=== PATIENT | female | born 1960 ===

== ENCOUNTER 2022-12-22 11:42 | Day surgery (SDC) | payer OTHER, SELFPAY ==
--- NOTE | 2022-12-22 | PATH_ITS ---
[facility] Accession Number: [id number] No. of containers..01 Tissue . 01 Material submitted: . colon - TRANSVERSE COLON POLYP . 01 Diagnosis: Transverse Colon Polyp: Tubular adenoma. MRV 12/26/2022 1351 Local . 01 Electronically signed: . Ryley Anderson MD, PhD, Pathologist NPI- [id number] . 01 Gross description: . TRANSVERSE COLON POLYP: Received in formalin is 1 fragment(s) of tim, soft tissue measuring 0.2 x 0.2 x 0.2 cm submitted entirely in 1 cassette(s) /EDIS 12/25/2022 0057 Local . 01 Pathologist provided ICD-10: D12.3 . 01 CPT . 537168 Specimen Comment: A courtesy copy of this report has been sent to [phone] Performed at: 01 [facility] [address] [place] [address], [place], [place] [id number] MD Alejandro Avila MD Phone: [phone]
[2022-12-22 12:40] VITALS: BP 120/75; PULSE 104; RESP 17; TEMP 36.2; O2SAT 97; BMI 28.3
[2022-12-22] MEDS: LACTATED RINGERS 1,000 ML 42 ML IV (12:55)
--- NOTE | 2022-12-22 12:56 | P.HP_ITS ---
History of Present Illness History of Present Illness Date Patient Seen: 12/22/22 Time Patient Seen: 12:57 Chief complaint: SDC Narrative: Here for colon cancer screening. [facility] Social History household members: spouse Smoking Status: Never smoker alcohol intake: current Meds Home Medications and Allergies Home Medications Medication Instructions Recorded Confirmed Type bupropion HCl 75 mg tablet 150 mg PO DAILY 12/22/22 12/22/22 History Allergies Allergy/AdvReac Type Severity Reaction Status Date / Time No Known Drug Allergies Allergy Verified 12/22/22 12:37 Review of Systems Review of Systems ROS: Yes All systems reviewed with the patient and are negative except as otherwise documented Exam Vital Signs (past 8 hours): - 12/22/22 12:40 Temperature 97.1 F L Pulse Rate 104 H Respiratory Rate 17 Blood Pressure 120/75 Pulse Oximetry 97 Oxygen Delivery Method Room Air Oxygen Delivery Method Room Air Const General: cooperative HENMT Head: normal to inspection Eyes General: appearance normal, both eyes and all related structures Neck Neck: normal visual inspection Chest Chest: normal inspection of the chest Resp Effort & Inspection: normal respiratory effort Cardio Rate: regular rate GI Inspection: normal to inspection Skin General: no rashes or lesions noted Neuro General: patient alert and patient awake Extrem General: normal to inspection and no pedal edema Psych Appearance: grossly normal Assessment & Plan Assessment & Plan narrative: 62-year-old female here for colon cancer screening. Colonoscopy is pursued today.
--- NOTE | 2022-12-22 13:31 | PM.PREOP ---
Pre-operative Note Interval Note History & Physical reviewed/Exam performed by Physician: Yes Changes to H&P: No ASA Class (for procedural sedation): II
--- NOTE | 2022-12-22 14:02 | PM.OP.COLON ---
Operative Date/Time/Diagnoses Date of procedure: 12/22/22 Time of procedure: 14:02 Pre-op diagnosis: Colon cancer screening Post-op diagnosis: same Procedure & Clinicians Study performed: Colonoscopy with cold forceps polypectomy Same procedure as scheduled: Yes Indications: Colon cancer screening Surgeon: Sj Garcia Procedure Notes SCOAP/Timeout: Done Procedure in detail: After the risks and benefits were explained, written and verbal informed consent was obtained. The patient was brought into the procedure room and placed into the left lateral decubitus position. Please see anesthesia note for sedation details. Digital rectal examination was accomplished. The scope was introduced into the patient and advanced under direct visualization to the cecum as identified by the appendiceal orifice and ileocecal valve. The scope was slowly withdrawn to carefully examine the mucosa for any defects or lesions. Comprehensive imaging was accomplished throughout the rectum including the dentate line. The colon was decompressed, the scope was then removed from the patient who tolerated the procedure well. Pediatric colonoscope Bowel prep excellent Scope withdrawal time: 7 minutes Sedation minutes: 13 Complications: none Impression: In the transverse colon there was a diminutive polyp removed with cold forceps. No additional significant mucosal pathology was appreciated throughout. Slightly tortuous colon. No significant mucosal pathology appreciated throughout. Endoscopic diagnosis 1. Diminutive colon polyp 2. Otherwise visually unremarkable colonoscopy Post-procedure Plan for aftercare: 1. Await histopathology. 2. Repeat colonoscopy 7-10 years contingent on histopathology. Disposition: PACU
[2022-12-22 14:03] VITALS: BP 89/53; PULSE 107; RESP 18; TEMP 36.3; O2SAT 95
[2022-12-22 14:08] VITALS: BP 150/67; PULSE 94; RESP 17; O2SAT 95
[2022-12-22 14:13] VITALS: BP 105/66; PULSE 100; RESP 20; O2SAT 99
[2022-12-22 14:19] VITALS: BP 110/70; PULSE 90; RESP 18; TEMP 36.7; O2SAT 95
[2022-12-22 14:24] VITALS: BP 112/75; PULSE 83; RESP 18; TEMP 36.9; O2SAT 98
== END 2022-12-22 14:38 | disposition home or self-care (01) ==
PROVIDERS: PCP Nurse Practitioner Family; Referring Provider Internal Medicine Gastroenterology; Visit Provider Internal Medicine Gastroenterology
PROC: 0DJD8ZZ Inspection of Lower Intestinal Tract, Via Natural or Artificial Opening Endoscopic (ICD-10-PCS; CPT 45378; principal; 2022-12-22 13:00)
DX: Z12.11 Encounter for screening for malignant neoplasm of colon (principal); D12.3 Benign neoplasm of transverse colon
CPT/HCPCS: 45380; J2704